=== PATIENT | male | born 1970 ===

== ENCOUNTER 2022-09-15 09:27 | Outpatient (REF) | payer OTHER, SELFPAY ==
--- NOTE | ~2022-09-15 | XR_ITS ---
EXAMINATION: XR CERVICAL SPINE CLINICAL INFORMATION: Reason for Exam M54.12 - Radiculopathy, cervical region COMPARISON: None TECHNIQUE: 4 views of the cervical spine were obtained. XR/XR cervical spine 4V FINDINGS/IMPRESSION: The cervical spine is visualized to the level of C7 on the lateral view. Status post C5/C6 and C6/C7 anterior cervical discectomy and spinal fusion with interbody disc spacers. No evidence of hardware fracture or complication. Alignment is maintained. No subluxation between flexion and extension views. Vertebral body heights and alignment are otherwise maintained. Moderate degenerative disc disease at C3/C4, manifested by disc space narrowing and osteophytosis.. No prevertebral soft tissue swelling.
== END 2022-09-15 09:28 | disposition home or self-care (01) ==
LOC: HO.HOSX 09:27
PROVIDERS: Visit Provider Physician Assistant
DX: M54.12 Radiculopathy, cervical region (principal)
CPT/HCPCS: 72050